=== PATIENT | female | born 1995 | race African-American/Black ===

== ENCOUNTER 2018-10-03 10:13 | Observation (INO) | payer MEDICAID ==
[~2018-10-03] VITALS: Ht 152.4 cm; Wt 72.1 kg
[2018-10-03] MEDS ORDERED: DEXT 5%/LACTATED RINGERS 1,000 ML IV SCH (11:00)
[2018-10-03] MEDS ORDERED: ONDANSETRON HCL 4MG/2ML INJ IV ONE (11:00)
[2018-10-03 11:50] LABS: CHLORIDE 107 mEq/L (98-107)
[2018-10-03] MEDS ORDERED: PANTOPRAZOLE 40MG DR TABLET PO SCH (12:15)
== END 2018-10-03 12:39 | disposition home or self-care (01) ==
LOC: 8 EST LDRP 10:13
PROVIDERS: ADMIT Specialist; ATTEND Specialist
DX: O21.2 Late vomiting of pregnancy (principal); O26.893 Other specified pregnancy related conditions, third trimester; N89.8 Other specified noninflammatory disorders of vagina; R10.9 Unspecified abdominal pain; Z3A.35 35 weeks gestation of pregnancy
CPT/HCPCS: 36415; 80053; 96374; 99281; G0378; J2405; 96360; 96361

== ENCOUNTER 2018-10-23 16:04 | Inpatient (IN) | payer MEDICAID ==
[~2018-10-23] VITALS: Ht 152.4 cm; Wt 71.7 kg
[2018-10-23] MEDS ORDERED: LACTATED RINGERS 1,000 ML IV SCH (17:09)
[2018-10-23] MEDS ORDERED: METHYLERGONOVINE MALEATE 0.2 MG/ML IM PRN (17:15)
[2018-10-23] MEDS ORDERED: LIDOCAINE HCL 1% 20ML VIAL (Pyxis) INJ INFIL SCH (17:15)
[2018-10-23] MEDS ORDERED: BUTORPHANOL TARTRATE 2 MG/ML VIAL IV PRN (17:15)
[2018-10-23] MEDS ORDERED: NALOXONE HCL 0.4 MG/ML 1ML VIAL IM PRN (17:15)
[2018-10-23] MEDS ORDERED: CARBOPROST TROMETHAMINE 250 MCG/ML AMPUL IM PRN (17:15)
[2018-10-23] MEDS: LACTATED RINGERS 1,000 ML IV SCH ×2 (18:29→23:31)
[2018-10-23] MEDS ORDERED: DEXT 5%/LR + PITOCIN 20UNITS/L 1,000 ML IV SCH (18:43)
[2018-10-23 19:04] LABS: BASOPHILS % 0.2 % (0.0-2.0); EOSINOPHILS % 0.9 % (0.0-5.0); HEMATOCRIT. 34.7 % (36.0-48.0); HEMOGLOBIN. 11.5 g/dL (12.0-16.0); LYMPHOCYTES % 13.5 % (20.0-50.0); MEAN CORPUSCULAR HEMOGLOBIN 27.6 pg (28.0-32.0); MEAN CORPUSCULAR VOLUME 83.1 fL (81.0-99.0); MONOCYTES % 10.1 % (2.0-8.0); NEUTROPHILS % 75.3 % (40.0-76.0); PLATELET 169 x1000/uL (130-400); RED BLOOD CELL COUNT 4.18 mill/uL (4.2-5.4); RED CELL DISTRIBUTION WIDTH 14.2 % (11.6-14.6)
[2018-10-23 19:05] LABS: INR 0.9; PARTIAL THROMBOPLASTIN TIME 29.1 sec (23.4-31.0); PROTHROMBIN TIME 9.5 sec (9.6-11.0)
[2018-10-23 19:08] LABS: CLARITY URINE CLEAR (CLEAR); COLOR URINE YELLOW (YELLOW); KETONES URINE TRACE (NEGATIVE); LEUKOCYTE ESTERASE URINE 1+ (NEGATIVE); NITRITE URINE NEGATIVE (NEGATIVE); OCCULT BLOOD URINE 2+ (NEGATIVE); PH URINE 6.5 (4.5-8.0); PROTEIN URINE TRACE (NEGATIVE); SPECIFIC GRAVITY URINE 1.024 (1.005-1.030)
[2018-10-23 19:17] LABS: *AMPHETAMINES SCREEN URINE NEGATIVE (NEGATIVE); *BARBITURATES SCREEN URINE NEGATIVE (NEGATIVE); *BENZODIAZEPINES SCREEN URINE NEGATIVE (NEGATIVE); *COCAINE SCREEN URINE NEGATIVE (NEGATIVE); METHADONE URINE SCREEN NEGATIVE (NEGATIVE); OPIATES URINE SCREEN NEGATIVE (NEGATIVE)
[2018-10-23 19:18] LABS: CANNABINOID URINE SCREEN NEGATIVE (NEGATIVE); PHENCYCLIDINE URINE SCREEN NEGATIVE (NEGATIVE)
[2018-10-23] MEDS ORDERED: ROPIVACAINE HCL/PF EPIDURAL 200 ML EPI SCH (20:00)
[2018-10-23] MEDS: DEXT 5%/LR + PITOCIN 20UNITS/L 1,000 ML IV SCH (20:06)
[2018-10-23 20:19] LABS: HEPATITIS B SURFACE ANTIGEN NEGATIVE
[2018-10-23] MEDS ORDERED: ACETAMINOPHEN 500MG TABLET PO ONE (20:45)
[2018-10-23] MEDS ORDERED: FENTANYL CITRATE/PF 50MCG/ML 2ML VIAL ONE (21:11)
[2018-10-23] MEDS ORDERED: LIDOCAINE HCL/PF 1% 10 MG/ML 5ML VIAL ONE (21:11)
[2018-10-23 23:23] LABS: CLARITY URINE CLEAR (CLEAR); COLOR URINE YELLOW (YELLOW); KETONES URINE NEGATIVE (NEGATIVE); LEUKOCYTE ESTERASE URINE 1+ (NEGATIVE); NITRITE URINE NEGATIVE (NEGATIVE); OCCULT BLOOD URINE 3+ (NEGATIVE); PROTEIN URINE NEGATIVE (NEGATIVE); SPECIFIC GRAVITY URINE 1.006 (1.005-1.030); UROBILINOGEN URINE 0.2 E.U./dL (0.2-1.0)
[2018-10-24] MEDS ORDERED: FENTANYL CITRATE/PF 50MCG/ML 2ML VIAL ONE ×2 (04:53→09:21)
[2018-10-24] MEDS ORDERED: LIDOCAINE HCL/PF 2% 20MG/ML 5 ML/VIAL ONE (04:54)
[2018-10-24] MEDS ORDERED: BUPIVACAINE HCL/PF 0.25% (2.5MG/ML) 10ML ONE (09:22)
[2018-10-24] MEDS ORDERED: LIDOCAINE HCL 2%/EPINEPHRINE 1:100,000 20 ML VIAL INFIL ONE (09:41)
[2018-10-24] MEDS ORDERED: MISOPROSTOL 200MCG TABLET RC NR (10:30)
[2018-10-24] MEDS: DEXT 5%/LR + PITOCIN 20UNITS/L 1,000 ML IV SCH (11:38)
[2018-10-24 13:00] VITALS: BP 129/60
[2018-10-24] MEDS ORDERED: DIPHENHYDRAMINE 25MG CAPSULE PO PRN (13:15)
[2018-10-24] MEDS ORDERED: IBUPROFEN 400MG TABLET PO PRN (13:15)
[2018-10-24] MEDS ORDERED: RHO(D) IMMUNE GLOBULIN 300 MCG/SYR IM PRN (13:15)
[2018-10-24] MEDS ORDERED: LANOLIN OINT 7GM TUBE TOP PRN (13:15)
[2018-10-24] MEDS ORDERED: GLYCERIN/WITCH HAZEL LEAF MEDICATED PAD TOP PRN (13:15)
[2018-10-24] MEDS ORDERED: HEMORRHOIDAL SUPP PR PRN (13:15)
[2018-10-24] MEDS ORDERED: METOCLOPRAMIDE HCL 10MG TABLET PO PRN (13:30)
[2018-10-24] MEDS: ACETAMINOPHEN WITH CODEINE 300/30MG TABLET PO PRN (14:36)
[2018-10-24] MEDS: BENZOCAINE/LANOLIN/ALOE VERA SPRAY TOP PRN ×2 (14:36→20:51)
[2018-10-24 16:24] VITALS: BP 102/51
[2018-10-24] MEDS: MAGNESIUM/ALUMINUM HYDROXIDE/SIMETHICONE 30ML UDC PO SCH ×2 (17:30→20:45)
[2018-10-24] MEDS: SIMETHICONE 80MG TABLET CHEW PO SCH ×2 (18:00→20:49)
[2018-10-24] MEDS: IBUPROFEN 800MG TABLET PO PRN (18:38)
[2018-10-24] MEDS: DOCUSATE SODIUM 100MG CAPSULE PO SCH (20:48)
[2018-10-24 22:00] VITALS: BP 102/60
[2018-10-25 05:33] VITALS: BP 103/62
[2018-10-25] MEDS: IBUPROFEN 800MG TABLET PO PRN ×2 (05:59→16:13)
[2018-10-25] MEDS: SIMETHICONE 80MG TABLET CHEW PO SCH ×4 (08:55→22:15)
[2018-10-25] MEDS: FERROUS SULFATE 325MG TABLET PO SCH ×3 (08:55→16:13)
[2018-10-25] MEDS: MAGNESIUM/ALUMINUM HYDROXIDE/SIMETHICONE 30ML UDC PO SCH ×4 (08:55→22:00)
[2018-10-25] MEDS: PRENATAL VIT/FE FUMARATE/FA TABLET PO SCH (08:55)
[2018-10-25] MEDS: ACETAMINOPHEN WITH CODEINE 300/30MG TABLET PO PRN ×2 (09:00→22:17)
[2018-10-25 09:30] LABS: BASOPHILS % 0.2 % (0.0-2.0); EOSINOPHILS % 0.7 % (0.0-5.0); HEMATOCRIT. 26.3 % (36.0-48.0); HEMOGLOBIN. 8.7 g/dL (12.0-16.0); LYMPHOCYTES % 15.5 % (20.0-50.0); MEAN CORPUSCULAR HEMOGLOBIN 27.4 pg (28.0-32.0); MEAN CORPUSCULAR VOLUME 82.7 fL (81.0-99.0); MEAN PLATELET VOLUME 10.4 fl (7.4-10.4); MONOCYTES % 7.8 % (2.0-8.0); NEUTROPHILS % 75.8 % (40.0-76.0); PLATELET 132 x1000/uL (130-400); RED BLOOD CELL COUNT 3.18 mill/uL (4.2-5.4); RED CELL DISTRIBUTION WIDTH 14.3 % (11.6-14.6)
[2018-10-25 19:00] VITALS: BP 112/50
[2018-10-25 22:00] VITALS: BP 115/44
[2018-10-25] MEDS: DOCUSATE SODIUM 100MG CAPSULE PO SCH (22:15)
[2018-10-26] VITALS: BP 116/52
[2018-10-26 08:00] VITALS: BP 114/57
[2018-10-26] MEDS: MAGNESIUM/ALUMINUM HYDROXIDE/SIMETHICONE 30ML UDC PO SCH (08:30)
[2018-10-26] MEDS: IBUPROFEN 800MG TABLET PO PRN (08:31)
[2018-10-26] MEDS: PRENATAL VIT/FE FUMARATE/FA TABLET PO SCH (08:31)
[2018-10-26] MEDS: FERROUS SULFATE 325MG TABLET PO SCH (08:31)
[2018-10-26] MEDS: SIMETHICONE 80MG TABLET CHEW PO SCH (08:31)
[2018-10-26] MEDS ORDERED: TETANUS, DIPHTHERIA, PERTUSSIS VAC/PF 0.5ML (>7YR OLD) IM ONE (09:30)
== END 2018-10-26 12:30 | disposition home or self-care (01) | DRG 560 ==
LOC: OBSVTOIN 16:04 → 8 EST LDRP 16:04 → 8EST 10-24 13:00
PROVIDERS: ADMIT Specialist; ATTEND Specialist
PROC: 10E0XZZ Delivery of Products of Conception, External Approach (ICD-10-PCS; principal; 2018-10-24)
PROC: 0KQM0ZZ Repair Perineum Muscle, Open Approach (ICD-10-PCS; 2018-10-24)
PROC: 3E0R3BZ Introduction of Anesthetic Agent into Spinal Canal, Percutaneous Approach (ICD-10-PCS; 2018-10-24)
PROC: 00HU33Z Insertion of Infusion Device into Spinal Canal, Percutaneous Approach (ICD-10-PCS; 2018-10-24)
DX: O69.81X0 Labor and delivery complicated by cord around neck, without compression, not applicable or unspecified (principal); D62 Acute posthemorrhagic anemia; O99.354 Diseases of the nervous system complicating childbirth; G43.909 Migraine, unspecified, not intractable, without status migrainosus; J45.909 Unspecified asthma, uncomplicated; O71.4 Obstetric high vaginal laceration alone; O99.02 Anemia complicating childbirth; O99.52 Diseases of the respiratory system complicating childbirth; Z37.0 Single live birth; Z3A.37 37 weeks gestation of pregnancy
CPT/HCPCS: 36415; 80305; 86592; 86703; 86762; 86850; 86900; 87340; 90715; J2210; J2590; J2795; J3010; J3490; J7120; A4315